=== PATIENT | male | born 2000 | race Caucasian/White ===

== ENCOUNTER 2018-09-17 11:08 | Emergency (ER) | payer BC ==
[2018-09-17 11:23] VITALS: BP 124/69
--- NOTE | 2018-09-17 11:40 | UC ---
Cardiac HPI - HPI Summary HPI Summary: Patient Chief Complaint: mild chest discomfort for three days. Pain quality: tightness; no radiation Course, aggravating, relieving: anxiety makes it worse; relieved by sleep; when anxious feels his heart racing. Current: substernal; 01/01; no radiation; no nausea, vomiting; no sweating. MD note: Vital signs stable; 122/69; no SOB; sitting comfortably; conversing; mother in the room. Nurses Note: chest pain starting last Tuesday 09/11. patient states he believes pain is "related to anxiety." - History of Current Complaint Chief Complaint: UCChestPain Stated Complaint: CHEST PAIN HR UP BP UP Time Seen by Provider: 09/17/18 11:37 Pain Intensity: 3 - Allergy/Home Medications Allergies/Adverse Reactions: Allergies Allergy/AdvReac Type Severity Reaction Status Date / Time No Known Allergies Allergy Unverified 09/17/18 11:23 Home Medications: Home Medications Ibuprofen 400 mg PO Q6HR PRN 09/17/18 [History Confirmed 09/17/18] PMH/Surg Hx/FS Hx/Imm Hx - Additional Past Medical History Additional PMH: Review of visit history: previous ED visit for mental health issues; anxiety; panic attacks. Review of chronic conditions: depression, anxiety Medications and Allergies: no BP meds. No anxiety meds. Family History: -Denies hypertension, heart disease, stroke, diabetes, cancer. SOCIAL HISTORY: Employment: Student; just started [employer]. Returns on Sundays. Family: at school. Habits: Non smoker; denies drug use. - Surgical History Surgical History: None - Family History Known Family History: Positive: Unknown - Social History Alcohol Use: None Substance Use Type: None Smoking Status (MU): Never Smoked Tobacco Review of Systems Constitutional: Negative Skin: Negative Eyes: Negative ENT: Negative Respiratory: Negative Cardiovascular: Palpitations - says that heart races when he is anxious, Chest Pain - mild chest tightness without nausea/vomiting, sweating, radiation; relieved by sleep. Gastrointestinal: Negative Genitourinary: Negative Motor: Negative Neurovascular: Negative Musculoskeletal: Negative Neurological: Negative Psychological: Negative Is Patient Immunocompromised?: No All Other Systems Reviewed And Are Negative: Yes Physical Exam Triage Information Reviewed: Yes Appearance: Well-Appearing Vital Signs: Initial Vital Signs Temp 98.3 F 09/17/18 11:19 Pulse 85 09/17/18 11:19 Resp 20 09/17/18 11:19 BP 124/69 09/17/18 11:19 Pulse Ox 100 09/17/18 11:19 Vital Signs Reviewed: Yes Eye Exam: Normal ENT Exam: Normal ENT: Positive: Normal ENT inspection Dental Exam: Normal Neck exam: Normal Neck: Positive: Supple Respiratory Exam: Normal Respiratory: Positive: Chest non-tender, Lungs clear, Normal breath sounds Cardiovascular: Positive: RRR, No Murmur, Pulses Normal, Brisk Capillary Refill Abdominal Exam: Normal Bowel Sounds: Positive: Present Musculoskeletal Exam: Normal Neurological Exam: Normal Psychological Exam: Other - anxious; slightly flat affect; worried about returning to school. - Assessment/Plan Course Of Treatment: Medications reviewed; Blood pressure slightly elevated due to anxiety. Patient is urgent/emergent. EKG: no acute ischemia; sinus. 79 BPM on EKG; rechecked multiple times without evidence of tachycardia. Patient with chest discomfort for 3 days, anxiety fort 6 days. Worse with exercise; relieved by sleep. No accompanying signs or symptoms suggetive of cardiovascular event. EKG shows no acute ischemia. I discussed with the patient and mother at length the option of going to the ED for further evaluation to rule out any cardiovascular event. Patient feels he wants to go home and be treated for anxiety and panic attacks next week. He has a mental health exam scheduled for 10 days from now. Patient understand that he must go to ED if chest discomfort increases or changes. - Differential Diagnoses - Chest Pain Differential Diagnosis/HQI/PQRI: Acute UT, Aortic Aneurysm, Chest Wall, Other: - anxiety - Clinical Impression Provider Diagnoses: Anxiety in an otherwise healthy 17 year old causing intermittent palpitations and chest discomfort. Panic attacks. Depression Discharge - Sign-Out/Discharge Documenting (check all that apply): Patient Departure All imaging exams completed and their final reports reviewed: No Studies - Discharge Plan Condition: Stable Disposition: HOME Patient Education Materials: Chest Pain (DC), Generalized Anxiety Disorder (ED) Referrals: No Primary Care Phys,NOPCP [Primary Care Provider] - Additional Instructions: WE DISCUSSED: GO TO ED FOR ANY CHANGE OR INCREASE IN CHEST PAIN OR SHORTNESS OF BREATH. FOLLOW UP NEXT WEEK FOR ANXIETY AND MEDICATION FOR PANIC ATTACKS. FOR SLEEP OR RELAXATION: TRY 50 MG OF OVER THE COUNTER BENADRYL. Recheck at any time for new or different symptoms. - Billing Disposition and Condition Condition: STABLE Disposition: Home
== END 2018-09-17 12:46 | disposition home or self-care (01) ==
LOC: UCEAST 11:08
DX: F41.0 Panic disorder [episodic paroxysmal anxiety] (principal); F32.9 Major depressive disorder, single episode, unspecified
CPT/HCPCS: 93005; 99211; G0463